=== PATIENT | female | born 1940 | race African-American/Black ===

== ENCOUNTER 2020-12-14 22:08 | Inpatient (IN) | payer OTHER, BC ==
[2020-12-14] MEDS ORDERED: morphine CARPU-JECT 4 MG/1 ML DISP.SYRIN IVPUSH ONE (22:34)
[2020-12-14] MEDS ORDERED: ONDANSETRON 4 MG/2 ML VIAL IVPUSH ONE (22:35)
[2020-12-14] MEDS ORDERED: morphine SULFATE 4 MG/ML VIAL ONE (22:38)
[2020-12-14] MEDS ORDERED: ONDANSETRON 4 MG/2 ML VIAL ONE (22:38)
[2020-12-14 23:03] LABS: BASO % 0.6 % (0-2.0); HEMATOCRIT 45.8 % (32.4-45.2); HEMOGLOBIN 15.3 GM/dL (10.7-15.3); LYMPH % 11.1 % (8-40); MCH 29.3 pg (25.7-33.7); MCHC 33.4 g/dl (32.0-36.0); MEAN CELL VOLUME 87.8 fl (80-96); MONO % 4.6 % (3.8-10.2); NEUT % 81.7 % (42.8-82.8); PLATELET COUNT 368 K/MM3 (134-434); RBC 5.22 M/mm3 (3.60-5.2); RDW 14.4 % (11.6-15.6); WHITE BLOOD COUNT 8.6 K/mm3 (4.0-10.0)
[2020-12-14] MEDS ORDERED: CEFTRIAXONE 1 GM in DEXTROSE 5%-WATER - 100 ML IVPB ONE (23:07)
[2020-12-14] MEDS ORDERED: SODIUM CHLORIDE 1,000 ML IV STA (23:09)
[2020-12-14 23:10] LABS: INR 0.92 (0.83-1.09); PROTHROMBIN TIME (PATIENT) 11.4 SEC (9.7-13.0)
[2020-12-14] MEDS ORDERED: ACETAMINOPHEN 1000 MG/100 ML VIAL (NON FORMULARY) IVPB ONE (23:14)
[2020-12-14] MEDS ORDERED: CEFTRIAXONE 1 GM/50 ML BAG ONE (23:21)
[2020-12-14] MEDS ORDERED: ACETAMINOPHEN INJECTION 100 ML IVPB ONE (23:21)
[2020-12-14 23:24] LABS: CHLORIDE 106 mmol/L (98-107); SODIUM 139 mmol/L (136-145)
[2020-12-14 23:27] LABS: ALBUMIN 3.8 g/dl (3.4-5.0); ANION GAP 7 MMOL/L (8-16); CALCIUM 9.6 mg/dL (8.5-10.1); CO2 26 mmol/L (21-32)
[2020-12-14 23:28] LABS: BLOOD UREA NITROGEN 16.5 mg/dL (7-18); GLUCOSE,RANDOM 119 mg/dL (74-106)
[2020-12-14 23:30] LABS: CREATININE 1.8 mg/dL (0.55-1.3); SGOT/AST 44 U/L (15-37); SGPT/ALT 31 U/L (13-61)
[2020-12-14 23:31] LABS: BILIRUBIN,TOTAL 0.5 mg/dL (0.2-1); TOT PROT 7.8 g/dl (6.4-8.2)
[2020-12-14 23:32] LABS: ALK PHOS 109 U/L (45-117)
[2020-12-14] MEDS ORDERED: SODIUM CHLORIDE 1,000 ML IV SCH (23:45)
[2020-12-15] MEDS ORDERED: MORPHINE SULFATE 2 MG/ML VIAL IVPUSH ONE (00:32)
[2020-12-15] MEDS ORDERED: HYDROmorphone HCl 2 MG/ML VIAL IVPUSH ONE (00:56)
[2020-12-15] MEDS ORDERED: HYDROmorphone HCl 2 MG/ML VIAL ONE ×2 (01:00→14:37)
[2020-12-15] MEDS ORDERED: morphine SULFATE 4 MG/ML VIAL IVPUSH PRN (04:00)
[2020-12-15] MEDS ORDERED: ACETAMINOPHEN 1000 MG/100 ML VIAL (NON FORMULARY) IVPB PRN ×3 (08:16→22:32)
[2020-12-15 08:39] LABS: BASO % 0.2 % (0-2.0); EOS % 0.1 % (0-4.5); HEMATOCRIT 42.2 % (32.4-45.2); HEMOGLOBIN 14.2 GM/dL (10.7-15.3); LYMPH % 4.8 % (8-40); MCH 29.7 pg (25.7-33.7); MCHC 33.5 g/dl (32.0-36.0); MEAN CELL VOLUME 88.6 fl (80-96); MEAN PLT VOLUME 9.3 fl (7.5-11.1); MONO % 5.8 % (3.8-10.2); NEUT % 89.1 % (42.8-82.8); PLATELET COUNT 319 K/MM3 (134-434); RBC 4.77 M/mm3 (3.60-5.2); RDW 14.1 % (11.6-15.6); WHITE BLOOD COUNT 9.2 K/mm3 (4.0-10.0)
[2020-12-15 09:05] LABS: BLOOD UREA NITROGEN 16.3 mg/dL (7-18); CALCIUM 8.9 mg/dL (8.5-10.1)
[2020-12-15 09:10] LABS: CREATININE 1.7 mg/dL (0.55-1.3)
[2020-12-15] MEDS ORDERED: cefTRIAXone SODIUM 1 GM VIAL ONE (09:13)
[2020-12-15] MEDS ORDERED: CEFTRIAXONE 1 GM in DEXTROSE 5%-WATER - 50 ML IVPB SCH (10:00)
[2020-12-15] MEDS ORDERED: MORPHINE SULFATE 2 MG/ML VIAL IVPUSH PRN (12:21)
[2020-12-15] MEDS ORDERED: POTASSIUM CHLORIDE 10 MEQ in SODIUM CHLORIDE 0.45% 1,000 ML IVPB SCH (12:45)
[2020-12-15] MEDS ORDERED: HYDROmorphone HCl 2 MG/ML VIAL IVPB PRN ×3 (13:20→22:32)
[2020-12-15] MEDS: KCL 10 MEQ IVPB 10 MEQ/100 ML INFUS.BAG IVPB SCH ×2 (13:41→15:51)
[2020-12-15] MEDS ORDERED: HYDROmorphone HCl 2 MG/ML VIAL IVPB ONE (14:45)
[2020-12-15] MEDS ORDERED: SODIUM CHLORIDE 0.45%/POT 20 MEQ/1,000 ML INFUS.BAG IV SCH ×2 (15:30→22:32)
[2020-12-15 16:27] LABS: BASO % 0.3 % (0-2.0); EOS % 0.2 % (0-4.5); HEMATOCRIT 43.1 % (32.4-45.2); LYMPH % 6.7 % (8-40); MCH 29.2 pg (25.7-33.7); MCHC 32.5 g/dl (32.0-36.0); MEAN CELL VOLUME 89.9 fl (80-96); MEAN PLT VOLUME 9.1 fl (7.5-11.1); MONO % 5.1 % (3.8-10.2); NEUT % 87.7 % (42.8-82.8); PLATELET COUNT 308 K/MM3 (134-434); RBC 4.79 M/mm3 (3.60-5.2); RDW 14.3 % (11.6-15.6); WHITE BLOOD COUNT 9.8 K/mm3 (4.0-10.0)
[2020-12-15 16:48] LABS: BLOOD UREA NITROGEN 19.5 mg/dL (7-18); CALCIUM 8.5 mg/dL (8.5-10.1)
[2020-12-15 16:49] LABS: ALBUMIN 3.3 g/dl (3.4-5.0)
[2020-12-15 16:52] LABS: CREATININE 2.2 mg/dL (0.55-1.3)
[2020-12-15 16:54] LABS: BILIRUBIN,TOTAL 0.6 mg/dL (0.2-1); TOT PROT 6.6 g/dl (6.4-8.2)
[2020-12-15] MEDS ORDERED: ONDANSETRON 4 MG/2 ML VIAL ONE (17:15)
[2020-12-15] MEDS ORDERED: SEVOFLURANE 250 ML BTL ONE (17:15)
[2020-12-15] MEDS ORDERED: DEXAMETHASONE SOD PHOSPHATE 4 MG/1 ML VIAL ONE (17:15)
[2020-12-15] MEDS ORDERED: ROCURONIUM BROMIDE 50 MG/5 ML SYRINGE ONE (17:15)
[2020-12-15] MEDS ORDERED: PT OWN MED DRAWER 7, Y5N ONE (17:26)
[2020-12-15] MEDS ORDERED: EPHEDRINE SULFATE/0.9% NACL/PF 50 MG/10 ML SYRINGE NR ONE (18:46)
[2020-12-15] MEDS ORDERED: VASOPRESSIN 20 UNITS/ML VIAL IV ONE (18:53)
[2020-12-15] MEDS ORDERED: NEOSTIGMINE METHYLSULFATE 0.5 MG/1 ML - 10 ML MDV ONE (20:28)
[2020-12-15] MEDS ORDERED: LACTATED RINGERS SOLUTION 1,000 ML IV SCH (21:45)
[2020-12-15] MEDS ORDERED: MUPIROCIN 2% TOPICAL OINTMENT FOR DECOLONIZATION NS SCH (22:00)
[2020-12-15] MEDS ORDERED: CHLORHEXIDINE GLUCONATE 4% CLEANSER FOR DECOLONIZATION TP SCH (22:00)
[2020-12-15 22:13] LABS: CALCIUM 8.2 mg/dL (8.5-10.1)
[2020-12-15 22:14] LABS: BLOOD UREA NITROGEN 19.1 mg/dL (7-18)
[2020-12-15 22:17] LABS: CREATININE 2.5 mg/dL (0.55-1.3)
[2020-12-15 22:35] LABS: HEMATOCRIT 42.2 % (32.4-45.2); HEMOGLOBIN 13.5 GM/dL (10.7-15.3); MCH 29.1 pg (25.7-33.7); MCHC 31.9 g/dl (32.0-36.0); MEAN CELL VOLUME 91.2 fl (80-96); MEAN PLT VOLUME 9.3 fl (7.5-11.1); PLATELET COUNT 282 K/MM3 (134-434); RBC 4.63 M/mm3 (3.60-5.2); RDW 14.7 % (11.6-15.6); WHITE BLOOD COUNT 7.5 K/mm3 (4.0-10.0)
[2020-12-16] MEDS ORDERED: ACETAMINOPHEN 1000 MG/100 ML VIAL (NON FORMULARY) IVPB PRN ×2 (02:16→15:56)
[2020-12-16] MEDS ORDERED: SODIUM CHLORIDE 0.45%/POT 20 MEQ/1,000 ML INFUS.BAG IV SCH (02:16)
[2020-12-16] MEDS ORDERED: LACTATED RINGERS SOLUTION 1000 ML INFUS.BAG IV ONE (02:42)
[2020-12-16] MEDS: MUPIROCIN 2% TOPICAL OINTMENT FOR DECOLONIZATION NS SCH ×3 (02:56→23:05)
[2020-12-16] MEDS ORDERED: METOPROLOL TARTRATE 5 MG/5 ML VIAL IVPUSH ONE (03:13)
[2020-12-16] MEDS: HYDROmorphone HCl 2 MG/ML VIAL IVPB PRN ×3 (05:54→15:53)
[2020-12-16 06:30] LABS: HEMATOCRIT 39.2 % (32.4-45.2); MCH 29.5 pg (25.7-33.7); MCHC 33.2 g/dl (32.0-36.0); MEAN PLT VOLUME 8.9 fl (7.5-11.1); PLATELET COUNT 248 K/MM3 (134-434); RDW 14.4 % (11.6-15.6); WHITE BLOOD COUNT 8.8 K/mm3 (4.0-10.0)
[2020-12-16 06:50] LABS: BLOOD UREA NITROGEN 21.9 mg/dL (7-18); CALCIUM 8.3 mg/dL (8.5-10.1)
[2020-12-16 06:53] LABS: CREATININE 2.3 mg/dL (0.55-1.3)
[2020-12-16 06:56] LABS: BILIRUBIN,TOTAL 1.9 mg/dL (0.2-1); TOT PROT 5.3 g/dl (6.4-8.2)
[2020-12-16] MEDS ORDERED: LEVOTHYROXINE NA 125 MCG TABLET (FP) PO SCH ×2 (07:00)
[2020-12-16 07:09] LABS: ALBUMIN 2.6 g/dl (3.4-5.0)
[2020-12-16] MEDS: LEVOTHYROXINE NA 125 MCG TABLET (FP) PO SCH (07:34)
[2020-12-16] MEDS: KCL 10 MEQ IVPB 10 MEQ/100 ML INFUS.BAG IVPB SCH ×3 (08:55→11:14)
[2020-12-16] MEDS ORDERED: SODIUM CHLORIDE 0.9% 500 ML INFUS.BAG IV ONE (09:01)
[2020-12-16] MEDS: LACTATED RINGERS SOLUTION 1,000 ML IV SCH (09:44)
[2020-12-16] MEDS ORDERED: PARoxetine HCL 20 MG TABLET PO SCH ×2 (10:00)
[2020-12-16] MEDS ORDERED: CEFTRIAXONE 1 GM in DEXTROSE 5%-WATER - 50 ML IVPB SCH (10:00)
[2020-12-16] MEDS ORDERED: MUPIROCIN 2% TOPICAL OINTMENT FOR DECOLONIZATION NS SCH (10:00)
[2020-12-16] MEDS ORDERED: DEXTROSE 5%-WATER - 50 ML IVPB ONE (10:17)
[2020-12-16] MEDS ORDERED: cefTRIAXone SODIUM 1 GM VIAL ONE (10:17)
[2020-12-16] MEDS: PARoxetine HCL 20 MG TABLET PO SCH (10:24)
[2020-12-16] MEDS: CEFTRIAXONE 1 GM in DEXTROSE 5%-WATER - 50 ML IVPB SCH (10:25)
[2020-12-16] MEDS ORDERED: DEXTROSE 5%-LACTATED RINGERS 1,000 ML IV SCH (14:00)
[2020-12-16] MEDS ORDERED: PT OWN MED DRAWER 7, Y5N ONE (18:17)
[2020-12-16] MEDS ORDERED: CHLORHEXIDINE GLUCONATE 4% CLEANSER FOR DECOLONIZATION TP SCH (22:00)
[2020-12-16] MEDS: CHLORHEXIDINE GLUCONATE 4% CLEANSER FOR DECOLONIZATION TP SCH (23:05)
[2020-12-17] MEDS: HYDROmorphone HCl 2 MG/ML VIAL IVPB PRN ×2 (02:49→10:42)
[2020-12-17] MEDS: LACTATED RINGERS SOLUTION 1,000 ML IV SCH ×2 (06:35→12:15)
[2020-12-17] MEDS: LEVOTHYROXINE NA 125 MCG TABLET (FP) PO SCH (07:01)
[2020-12-17 07:07] LABS: ALBUMIN 2.5 g/dl (3.4-5.0); BLOOD UREA NITROGEN 21.1 mg/dL (7-18); CALCIUM 8.5 mg/dL (8.5-10.1)
[2020-12-17 07:11] LABS: BILIRUBIN,TOTAL 0.6 mg/dL (0.2-1); CREATININE 1.8 mg/dL (0.55-1.3); HEMATOCRIT 36.4 % (32.4-45.2); HEMOGLOBIN 12.3 GM/dL (10.7-15.3); MCH 29.9 pg (25.7-33.7); MCHC 33.9 g/dl (32.0-36.0); MEAN CELL VOLUME 88.2 fl (80-96); MEAN PLT VOLUME 9.2 fl (7.5-11.1); PLATELET COUNT 229 K/MM3 (134-434); RBC 4.12 M/mm3 (3.60-5.2); RDW 14.8 % (11.6-15.6); TOT PROT 5.4 g/dl (6.4-8.2); WHITE BLOOD COUNT 6.9 K/mm3 (4.0-10.0)
[2020-12-17] MEDS: MUPIROCIN 2% TOPICAL OINTMENT FOR DECOLONIZATION NS SCH ×2 (09:50→22:33)
[2020-12-17] MEDS ORDERED: cefTRIAXone SODIUM 1 GM VIAL ONE (10:02)
[2020-12-17] MEDS ORDERED: DEXTROSE 5%-WATER - 50 ML IVPB ONE (10:02)
[2020-12-17] MEDS: CEFTRIAXONE 1 GM in DEXTROSE 5%-WATER - 50 ML IVPB SCH (10:08)
[2020-12-17] MEDS: PARoxetine HCL 20 MG TABLET PO SCH (10:12)
[2020-12-17] MEDS ORDERED: PT OWN MED DRAWER 7, Y5N ONE ×2 (10:30→12:12)
[2020-12-17] MEDS ORDERED: ONDANSETRON 4 MG/2 ML VIAL IVPUSH PRN (11:49)
[2020-12-17] MEDS ORDERED: ONDANSETRON 4 MG/2 ML VIAL IVPB STA (12:27)
[2020-12-17] MEDS ORDERED: PANTOPRAZOLE SODIUM 40 MG in SODIUM CHLORIDE 100 ML IVPB SCH (12:30)
[2020-12-17] MEDS: PANTOPRAZOLE SODIUM 40 MG VIAL IVPB SCH (12:52)
[2020-12-17] MEDS: METOCLOPRAMIDE HCL INJECTION 10 MG/2 ML VIAL IVPB SCH ×2 (13:12→18:31)
[2020-12-17] MEDS: BENZOCAINE/MENTH/CETYLPYRD CL 1 EACH LOZENGE MM PRN (13:56)
[2020-12-17] MEDS ORDERED: ACETAMINOPHEN 1000 MG/100 ML VIAL (NON FORMULARY) IVPB PRN (16:21)
[2020-12-17] MEDS: CHLORHEXIDINE GLUCONATE 4% CLEANSER FOR DECOLONIZATION TP SCH (22:33)
[2020-12-17] MEDS ORDERED: ONDANSETRON 4 MG/2 ML VIAL ONE (22:34)
[2020-12-18] MEDS: METOCLOPRAMIDE HCL INJECTION 10 MG/2 ML VIAL IVPB SCH ×3 (02:58→17:29)
[2020-12-18 06:08] LABS: BASO % 0.2 % (0-2.0); EOS % 0.6 % (0-4.5); HEMATOCRIT 39.8 % (32.4-45.2); HEMOGLOBIN 13.3 GM/dL (10.7-15.3); LYMPH % 4.9 % (8-40); MCH 29.4 pg (25.7-33.7); MCHC 33.4 g/dl (32.0-36.0); MEAN CELL VOLUME 87.9 fl (80-96); MEAN PLT VOLUME 9.2 fl (7.5-11.1); MONO % 5.6 % (3.8-10.2); NEUT % 88.7 % (42.8-82.8); PLATELET COUNT 279 K/MM3 (134-434); RBC 4.53 M/mm3 (3.60-5.2); RDW 14.3 % (11.6-15.6); WHITE BLOOD COUNT 11.2 K/mm3 (4.0-10.0)
[2020-12-18 06:24] LABS: ALBUMIN 2.7 g/dl (3.4-5.0); BLOOD UREA NITROGEN 19.4 mg/dL (7-18); CALCIUM 8.9 mg/dL (8.5-10.1); MAGNESIUM 2.2 mg/dL (1.8-2.4)
[2020-12-18 06:27] LABS: CREATININE 1.4 mg/dL (0.55-1.3); PHOSPHOROUS 2.5 mg/dL (2.5-4.9)
[2020-12-18 06:29] LABS: BILIRUBIN,TOTAL 0.9 mg/dL (0.2-1); TOT PROT 6.1 g/dl (6.4-8.2)
[2020-12-18] MEDS: LEVOTHYROXINE NA 125 MCG TABLET (FP) PO SCH (08:00)
[2020-12-18] MEDS: BENZOCAINE/MENTH/CETYLPYRD CL 1 EACH LOZENGE MM PRN (08:03)
[2020-12-18] MEDS ORDERED: DEXTROSE 5%-WATER - 50 ML IVPB ONE (09:48)
[2020-12-18] MEDS ORDERED: cefTRIAXone SODIUM 1 GM VIAL ONE (09:48)
[2020-12-18] MEDS: PANTOPRAZOLE SODIUM 40 MG VIAL IVPB SCH (09:54)
[2020-12-18] MEDS: MUPIROCIN 2% TOPICAL OINTMENT FOR DECOLONIZATION NS SCH ×2 (09:55→21:37)
[2020-12-18] MEDS: CEFTRIAXONE 1 GM in DEXTROSE 5%-WATER - 50 ML IVPB SCH (09:56)
[2020-12-18] MEDS: LACTATED RINGERS SOLUTION 1,000 ML IV SCH (17:29)
[2020-12-18] MEDS ORDERED: ACETAMINOPHEN 1000 MG/100 ML VIAL (NON FORMULARY) IVPB PRN (18:59)
[2020-12-18] MEDS: CHLORHEXIDINE GLUCONATE 4% CLEANSER FOR DECOLONIZATION TP SCH (21:37)
[2020-12-19] MEDS: METOCLOPRAMIDE HCL INJECTION 10 MG/2 ML VIAL IVPB SCH ×3 (02:01→17:22)
[2020-12-19] MEDS: LEVOTHYROXINE NA 125 MCG TABLET (FP) PO SCH (06:34)
[2020-12-19 06:42] LABS: HEMATOCRIT 35.8 % (32.4-45.2); HEMOGLOBIN 12.1 GM/dL (10.7-15.3); MCH 29.7 pg (25.7-33.7); MCHC 33.8 g/dl (32.0-36.0); MEAN CELL VOLUME 87.7 fl (80-96); PLATELET COUNT 260 K/MM3 (134-434); RBC 4.08 M/mm3 (3.60-5.2); WHITE BLOOD COUNT 10.4 K/mm3 (4.0-10.0)
[2020-12-19 06:55] LABS: CHLORIDE 110 mmol/L (98-107); SODIUM 145 mmol/L (136-145)
[2020-12-19 06:58] LABS: BLOOD UREA NITROGEN 16.7 mg/dL (7-18); CALCIUM 8.4 mg/dL (8.5-10.1); CO2 24 mmol/L (21-32); GLUCOSE,RANDOM 82 mg/dL (74-106); MAGNESIUM 1.8 mg/dL (1.8-2.4)
[2020-12-19 07:02] LABS: CREATININE 1.2 mg/dL (0.55-1.3); PHOSPHOROUS 2.2 mg/dL (2.5-4.9)
[2020-12-19 08:01] LABS: ANION GAP 11 MMOL/L (8-16)
[2020-12-19] MEDS ORDERED: KCL 10 MEQ IVPB 10 MEQ/100 ML INFUS.BAG IVPB SCH (08:15)
[2020-12-19] MEDS: KCL 10 MEQ IVPB 10 MEQ/100 ML INFUS.BAG IVPB SCH ×3 (09:00→12:35)
[2020-12-19] MEDS ORDERED: cefTRIAXone SODIUM 1 GM VIAL ONE (09:02)
[2020-12-19] MEDS ORDERED: DEXTROSE 5%-WATER - 50 ML IVPB ONE (09:02)
[2020-12-19] MEDS: PANTOPRAZOLE SODIUM 40 MG VIAL IVPB SCH (09:19)
[2020-12-19] MEDS: MUPIROCIN 2% TOPICAL OINTMENT FOR DECOLONIZATION NS SCH (09:24)
[2020-12-19] MEDS: LACTATED RINGERS SOLUTION 1,000 ML IV SCH (12:33)
[2020-12-19] MEDS ORDERED: PT OWN MED DRAWER 7, Y5N ONE (17:16)
[2020-12-19] MEDS: BENZOCAINE/MENTH/CETYLPYRD CL 1 EACH LOZENGE MM PRN (17:19)
[2020-12-19] MEDS ORDERED: BENZOCAINE/MENTH/CETYLPYRD CL 1 EACH LOZENGE MM PRN (20:12)
[2020-12-19] MEDS ORDERED: ACETAMINOPHEN 1000 MG/100 ML VIAL (NON FORMULARY) IVPB PRN (22:38)
[2020-12-20] MEDS: METOCLOPRAMIDE HCL INJECTION 10 MG/2 ML VIAL IVPB SCH ×3 (02:03→17:01)
[2020-12-20] MEDS ORDERED: METOPROLOL TARTRATE 5 MG/5 ML VIAL IVPUSH ONE (05:06)
[2020-12-20] MEDS ORDERED: METOPROLOL TARTRATE 5 MG/5 ML VIAL ONE (05:11)
[2020-12-20 05:37] LABS: HEMATOCRIT 38.9 % (32.4-45.2); HEMOGLOBIN 13.3 GM/dL (10.7-15.3); MCH 29.6 pg (25.7-33.7); MCHC 34.2 g/dl (32.0-36.0); MEAN CELL VOLUME 86.4 fl (80-96); MEAN PLT VOLUME 8.6 fl (7.5-11.1); PLATELET COUNT 287 K/MM3 (134-434); RBC 4.51 M/mm3 (3.60-5.2); RDW 13.7 % (11.6-15.6); WHITE BLOOD COUNT 9.3 K/mm3 (4.0-10.0)
[2020-12-20 05:57] LABS: CHLORIDE 104 mmol/L (98-107); SODIUM 141 mmol/L (136-145)
[2020-12-20 05:59] LABS: ALBUMIN 2.9 g/dl (3.4-5.0); BLOOD UREA NITROGEN 13.7 mg/dL (7-18); CALCIUM 8.7 mg/dL (8.5-10.1); CO2 27 mmol/L (21-32); GLUCOSE,RANDOM 82 mg/dL (74-106)
[2020-12-20 06:02] LABS: SGOT/AST 17 U/L (15-37); SGPT/ALT 13 U/L (13-61)
[2020-12-20 06:03] LABS: CREATININE 1.2 mg/dL (0.55-1.3)
[2020-12-20 06:04] LABS: BILIRUBIN,TOTAL 0.8 mg/dL (0.2-1); TOT PROT 6.1 g/dl (6.4-8.2)
[2020-12-20 06:05] LABS: ALK PHOS 94 U/L (45-117)
[2020-12-20 06:07] LABS: N-TERMINAL BNP 1877.8 pg/ml (5-450)
[2020-12-20] MEDS: LEVOTHYROXINE NA 125 MCG TABLET (FP) PO SCH (06:32)
[2020-12-20 06:37] LABS: ANION GAP 11 MMOL/L (8-16)
[2020-12-20] MEDS: KCL 10 MEQ IVPB 10 MEQ/100 ML INFUS.BAG IVPB SCH ×2 (07:54→09:15)
[2020-12-20] MEDS: PANTOPRAZOLE SODIUM 40 MG VIAL IVPB SCH (09:23)
[2020-12-20] MEDS: POTASSIUM CHLORIDE ORAL LIQUID 20 MEQ/15 ML PO SCH ×2 (09:24→21:51)
[2020-12-20 10:48] LABS: MAGNESIUM 1.6 mg/dL (1.8-2.4)
[2020-12-20] MEDS: ACETAMINOPHEN 325 MG TABLET (FP) PO PRN ×2 (13:47→21:52)
[2020-12-20 16:53] LABS: CHLORIDE 104 mmol/L (98-107); SODIUM 140 mmol/L (136-145)
[2020-12-20 16:54] LABS: CALCIUM 8.2 mg/dL (8.5-10.1)
[2020-12-20 16:55] LABS: CO2 28 mmol/L (21-32); GLUCOSE,RANDOM 115 mg/dL (74-106)
[2020-12-20 16:58] LABS: CREATININE 1.2 mg/dL (0.55-1.3)
[2020-12-20 17:07] LABS: ANION GAP 7 MMOL/L (8-16)
[2020-12-21] MEDS: METOCLOPRAMIDE HCL INJECTION 10 MG/2 ML VIAL IVPB SCH (03:00)
[2020-12-21] MEDS: LEVOTHYROXINE NA 125 MCG TABLET (FP) PO SCH (06:29)
[2020-12-21] MEDS ORDERED: METOCLOPRAMIDE HCL INJECTION 10 MG/2 ML VIAL IVPB PRN (08:31)
[2020-12-21] MEDS: FAMOTIDINE 20 MG TABLET PO SCH (09:06)
[2020-12-21 09:12] LABS: HEMATOCRIT 41.6 % (32.4-45.2); HEMOGLOBIN 14.2 GM/dL (10.7-15.3); MCH 29.6 pg (25.7-33.7); MCHC 34.1 g/dl (32.0-36.0); MEAN CELL VOLUME 86.9 fl (80-96); MEAN PLT VOLUME 8.8 fl (7.5-11.1); PLATELET COUNT 301 K/MM3 (134-434); RBC 4.79 M/mm3 (3.60-5.2); RDW 14.2 % (11.6-15.6); WHITE BLOOD COUNT 9.6 K/mm3 (4.0-10.0)
[2020-12-21 09:25] LABS: CHLORIDE 105 mmol/L (98-107); SODIUM 141 mmol/L (136-145)
[2020-12-21 09:26] LABS: CALCIUM 9.1 mg/dL (8.5-10.1)
[2020-12-21 09:27] LABS: BLOOD UREA NITROGEN 11.4 mg/dL (7-18); CO2 25 mmol/L (21-32); GLUCOSE,RANDOM 124 mg/dL (74-106); MAGNESIUM 1.4 mg/dL (1.8-2.4)
[2020-12-21 09:30] LABS: CREATININE 1.3 mg/dL (0.55-1.3); SGOT/AST 21 U/L (15-37); SGPT/ALT 16 U/L (13-61)
[2020-12-21] MEDS ORDERED: MAGNESIUM SULF 50% (8.12 MEQ/2 ML-1 GM VIAL) IVPB ONE (09:30)
[2020-12-21 09:32] LABS: BILIRUBIN,TOTAL 0.7 mg/dL (0.2-1); TOT PROT 6.4 g/dl (6.4-8.2)
[2020-12-21 09:33] LABS: ALK PHOS 94 U/L (45-117); ANION GAP 11 MMOL/L (8-16)
[2020-12-21] MEDS: POTASSIUM CHLORIDE ORAL LIQUID 20 MEQ/15 ML PO SCH ×2 (11:23→21:49)
[2020-12-21] MEDS: KCL 10 MEQ IVPB 10 MEQ/100 ML INFUS.BAG IVPB SCH ×3 (11:28→17:29)
[2020-12-21] MEDS: ACETAMINOPHEN 325 MG TABLET (FP) PO PRN ×2 (11:33→21:51)
[2020-12-22] MEDS: LEVOTHYROXINE NA 125 MCG TABLET (FP) PO SCH (06:17)
[2020-12-22] MEDS ORDERED: MINERAL OIL ENEMA 133 ML ENEMA RC ONE (08:03)
[2020-12-22] MEDS ORDERED: ACETAMINOPHEN 1000 MG/100 ML VIAL (NON FORMULARY) IVPB PRN ×2 (08:03→17:35)
[2020-12-22] MEDS ORDERED: SIMETHICONE 40 MG/0.6 ML BOTTLE PO PRN (08:04)
[2020-12-22 08:40] LABS: ALBUMIN 2.8 g/dl (3.4-5.0)
[2020-12-22 08:41] LABS: BLOOD UREA NITROGEN 8.2 mg/dL (7-18); CALCIUM 8.3 mg/dL (8.5-10.1)
[2020-12-22 08:44] LABS: CREATININE 1.3 mg/dL (0.55-1.3)
[2020-12-22 08:45] LABS: BILIRUBIN,TOTAL 0.6 mg/dL (0.2-1); TOT PROT 5.9 g/dl (6.4-8.2)
[2020-12-22] MEDS: POTASSIUM CHLORIDE ORAL LIQUID 20 MEQ/15 ML PO SCH ×2 (09:24→21:38)
[2020-12-22] MEDS: FAMOTIDINE 20 MG TABLET PO SCH (09:24)
[2020-12-22 14:01] VITALS: BMI 31.1
[2020-12-22] MEDS ORDERED: cefTRIAXone SODIUM 1 GM VIAL ONE (14:07)
[2020-12-22] MEDS ORDERED: DEXTROSE 5%-WATER - 50 ML IVPB ONE (14:07)
[2020-12-22] MEDS: CEFTRIAXONE 1 GM in DEXTROSE 5%-WATER - 50 ML IVPB SCH (14:19)
[2020-12-22] MEDS: PANTOPRAZOLE 40 MG TABLET PO SCH (14:20)
[2020-12-22] MEDS: SODIUM PHOSPHATE/NA BIPHOS 133 ML ENEMA RC SCH ×3 (14:24→21:29)
[2020-12-22] MEDS: RIFAXIMIN 550 MG TABLET (UD) PO SCH ×2 (14:41→21:38)
[2020-12-22] MEDS: SIMETHICONE 40 MG/0.6 ML BOTTLE PO SCH ×3 (14:42→21:38)
[2020-12-22] MEDS ORDERED: PT OWN MED DRAWER 7, Y5N ONE (14:57)
[2020-12-22] MEDS: METOCLOPRAMIDE HCL 10 MG TABLET (FP) PO SCH (17:00)
[2020-12-22] MEDS ORDERED: oxyCODONE HCL 5 MG TABLET PO PRN (17:30)
[2020-12-22] MEDS ORDERED: ACETAMINOPHEN 325 MG TABLET (FP) PO PRN (17:30)
[2020-12-22] MEDS: HYDROmorphone HCl 2 MG/ML VIAL IVPB PRN (18:34)
[2020-12-22] MEDS: SODIUM CHLORIDE 0.45%/POT 20 MEQ/1,000 ML INFUS.BAG IV SCH (18:39)
[2020-12-22] MEDS ORDERED: POLYETHYLENE GLYCOL 3350 119 GM BTL PO SCH (22:00)
[2020-12-23] MEDS: SODIUM PHOSPHATE/NA BIPHOS 133 ML ENEMA RC SCH (01:51)
[2020-12-23] MEDS: RIFAXIMIN 550 MG TABLET (UD) PO SCH ×3 (05:55→21:15)
[2020-12-23] MEDS: METOCLOPRAMIDE HCL 10 MG TABLET (FP) PO SCH (06:04)
[2020-12-23] MEDS: LEVOTHYROXINE NA 125 MCG TABLET (FP) PO SCH (06:04)
[2020-12-23] MEDS: HYDROmorphone HCl 2 MG/ML VIAL IVPB PRN ×3 (06:52→21:00)
[2020-12-23 08:08] LABS: BASO % 0.6 % (0-2.0); EOS % 4.8 % (0-4.5); HEMATOCRIT 35.2 % (32.4-45.2); LYMPH % 11.7 % (8-40); MCH 29.4 pg (25.7-33.7); MEAN CELL VOLUME 86.5 fl (80-96); MEAN PLT VOLUME 8.6 fl (7.5-11.1); MONO % 13.4 % (3.8-10.2); NEUT % 69.5 % (42.8-82.8); PLATELET COUNT 336 K/MM3 (134-434); RBC 4.07 M/mm3 (3.60-5.2); RDW 13.8 % (11.6-15.6); WHITE BLOOD COUNT 11.4 K/mm3 (4.0-10.0)
[2020-12-23 08:28] LABS: CALCIUM 7.9 mg/dL (8.5-10.1)
[2020-12-23 08:29] LABS: ALBUMIN 2.6 g/dl (3.4-5.0); BLOOD UREA NITROGEN 6.9 mg/dL (7-18); MAGNESIUM 1.5 mg/dL (1.8-2.4)
[2020-12-23 08:32] LABS: CREATININE 1.2 mg/dL (0.55-1.3)
[2020-12-23 08:33] LABS: BILIRUBIN,TOTAL 0.5 mg/dL (0.2-1)
[2020-12-23 08:34] LABS: TOT PROT 5.6 g/dl (6.4-8.2)
[2020-12-23] MEDS ORDERED: PT OWN MED DRAWER 7, Y5N ONE ×4 (09:59→22:51)
[2020-12-23] MEDS ORDERED: cefTRIAXone SODIUM 1 GM VIAL ONE (10:00)
[2020-12-23] MEDS ORDERED: DEXTROSE 5%-WATER - 50 ML IVPB ONE (10:01)
[2020-12-23] MEDS: CEFTRIAXONE 1 GM in DEXTROSE 5%-WATER - 50 ML IVPB SCH (10:07)
[2020-12-23] MEDS: POTASSIUM CHLORIDE ORAL LIQUID 20 MEQ/15 ML PO SCH ×2 (10:08→21:16)
[2020-12-23] MEDS: PANTOPRAZOLE 40 MG TABLET PO SCH (10:08)
[2020-12-23] MEDS: SIMETHICONE 40 MG/0.6 ML BOTTLE PO SCH ×4 (10:08→21:39)
[2020-12-23] MEDS: ENOXAPARIN NA (PORCINE) 40 MG/0.4 ML DISP.SYRIN SQ SCH (10:08)
[2020-12-23 12:03] LABS: ANISOCYTOSIS 1+; MACROCYTOSIS 0; PLATELET ESTIMATE NORMAL
[2020-12-23] MEDS: SODIUM CHLORIDE 0.45%/POT 20 MEQ/1,000 ML INFUS.BAG IV SCH (17:27)
[2020-12-23] MEDS ORDERED: KETOROLAC TROMETHAMINE 60 MG/2 ML VIAL IVPUSH ONE (17:47)
[2020-12-23] MEDS ORDERED: KETOROLAC TROMETHAMINE 30 MG/1 ML VIAL IVPUSH PRN (17:49)
[2020-12-23] MEDS ORDERED: KETOROLAC TROMETHAMINE 30 MG/1 ML VIAL IVPUSH ONE (18:00)
[2020-12-24] MEDS: HYDROmorphone HCl 2 MG/ML VIAL IVPB PRN ×3 (05:00→21:23)
[2020-12-24] MEDS: RIFAXIMIN 550 MG TABLET (UD) PO SCH ×3 (05:06→21:26)
[2020-12-24] MEDS: LEVOTHYROXINE NA 125 MCG TABLET (FP) PO SCH (06:09)
[2020-12-24] MEDS ORDERED: PT OWN MED DRAWER 7, Y5N ONE ×2 (09:44→16:20)
[2020-12-24] MEDS ORDERED: DEXTROSE 5%-WATER - 50 ML IVPB ONE (09:45)
[2020-12-24] MEDS ORDERED: cefTRIAXone SODIUM 1 GM VIAL ONE (09:45)
[2020-12-24] MEDS: CEFTRIAXONE 1 GM in DEXTROSE 5%-WATER - 50 ML IVPB SCH (09:51)
[2020-12-24] MEDS: PANTOPRAZOLE 40 MG TABLET PO SCH (09:52)
[2020-12-24] MEDS: SIMETHICONE 40 MG/0.6 ML BOTTLE PO SCH ×5 (09:52→21:26)
[2020-12-24] MEDS: ENOXAPARIN NA (PORCINE) 40 MG/0.4 ML DISP.SYRIN SQ SCH (09:52)
[2020-12-24] MEDS: POTASSIUM CHLORIDE ORAL LIQUID 20 MEQ/15 ML PO SCH (09:54)
[2020-12-24 10:05] LABS: BASO % 0.9 % (0-2.0); EOS % 3.6 % (0-4.5); HEMATOCRIT 37.8 % (32.4-45.2); HEMOGLOBIN 12.5 GM/dL (10.7-15.3); LYMPH % 11.6 % (8-40); MCH 29.7 pg (25.7-33.7); MCHC 33.2 g/dl (32.0-36.0); MEAN CELL VOLUME 89.7 fl (80-96); MEAN PLT VOLUME 9.5 fl (7.5-11.1); MONO % 12.3 % (3.8-10.2); NEUT % 71.6 % (42.8-82.8); PLATELET COUNT 326 K/MM3 (134-434); RBC 4.21 M/mm3 (3.60-5.2); RDW 14.3 % (11.6-15.6); WHITE BLOOD COUNT 10.5 K/mm3 (4.0-10.0)
[2020-12-24 10:28] LABS: BLOOD UREA NITROGEN 6.7 mg/dL (7-18); CALCIUM 8.7 mg/dL (8.5-10.1)
[2020-12-24 10:31] LABS: CREATININE 1.2 mg/dL (0.55-1.3)
[2020-12-24 10:33] LABS: BILIRUBIN,TOTAL 0.8 mg/dL (0.2-1); TOT PROT 6.6 g/dl (6.4-8.2)
[2020-12-24] MEDS: SODIUM CHLORIDE 0.45%/POT 20 MEQ/1,000 ML INFUS.BAG IV SCH (17:11)
[2020-12-24] MEDS ORDERED: KETOROLAC TROMETHAMINE 30 MG/1 ML VIAL IVPUSH PRN (17:12)
[2020-12-24] MEDS ORDERED: SODIUM CHLORIDE 0.45%/POT 20 MEQ/1,000 ML INFUS.BAG IV SCH (17:12)
[2020-12-25] MEDS: RIFAXIMIN 550 MG TABLET (UD) PO SCH ×3 (05:24→21:10)
[2020-12-25] MEDS: LEVOTHYROXINE NA 125 MCG TABLET (FP) PO SCH (06:07)
[2020-12-25] MEDS ORDERED: cefTRIAXone SODIUM 1 GM VIAL ONE (08:52)
[2020-12-25] MEDS ORDERED: DEXTROSE 5%-WATER - 50 ML IVPB ONE (08:52)
[2020-12-25] MEDS ORDERED: PT OWN MED DRAWER 7, Y5N ONE ×3 (08:52→17:08)
[2020-12-25] MEDS: SIMETHICONE 40 MG/0.6 ML BOTTLE PO SCH ×4 (09:03→21:10)
[2020-12-25] MEDS: CEFTRIAXONE 1 GM in DEXTROSE 5%-WATER - 50 ML IVPB SCH (09:03)
[2020-12-25] MEDS: PANTOPRAZOLE 40 MG TABLET PO SCH (09:03)
[2020-12-25] MEDS: ENOXAPARIN NA (PORCINE) 40 MG/0.4 ML DISP.SYRIN SQ SCH (09:03)
[2020-12-25] MEDS: ACETAMINOPHEN 325 MG TABLET (FP) PO PRN (20:34)
[2020-12-26] MEDS: RIFAXIMIN 550 MG TABLET (UD) PO SCH ×2 (05:50→13:39)
[2020-12-26] MEDS: LEVOTHYROXINE NA 125 MCG TABLET (FP) PO SCH (06:05)
[2020-12-26 08:55] LABS: BASO % 1.2 % (0-2.0); EOS % 4.4 % (0-4.5); HEMATOCRIT 35.9 % (32.4-45.2); HEMOGLOBIN 12.1 GM/dL (10.7-15.3); LYMPH % 10.6 % (8-40); MCH 29.7 pg (25.7-33.7); MCHC 33.6 g/dl (32.0-36.0); MEAN CELL VOLUME 88.2 fl (80-96); MEAN PLT VOLUME 8.8 fl (7.5-11.1); MONO % 12.6 % (3.8-10.2); NEUT % 71.2 % (42.8-82.8); PLATELET COUNT 488 K/MM3 (134-434); RBC 4.07 M/mm3 (3.60-5.2); RDW 13.9 % (11.6-15.6); WHITE BLOOD COUNT 8.4 K/mm3 (4.0-10.0)
[2020-12-26 09:29] LABS: ALBUMIN 2.9 g/dl (3.4-5.0); BLOOD UREA NITROGEN 3.9 mg/dL (7-18); CALCIUM 8.7 mg/dL (8.5-10.1)
[2020-12-26 09:32] LABS: CREATININE 1.3 mg/dL (0.55-1.3)
[2020-12-26 09:34] LABS: BILIRUBIN,TOTAL 0.5 mg/dL (0.2-1); TOT PROT 6.2 g/dl (6.4-8.2)
[2020-12-26] MEDS ORDERED: PT OWN MED DRAWER 7, Y5N ONE ×5 (10:20→21:34)
[2020-12-26 10:21] LABS: ANISOCYTOSIS 0; MACROCYTOSIS 0; PLATELET ESTIMATE INCREASED
[2020-12-26] MEDS: LOSARTAN POTASSIUM 50 MG TABLET PO SCH (10:22)
[2020-12-26] MEDS: SIMETHICONE 40 MG/0.6 ML BOTTLE PO SCH ×4 (10:22→21:48)
[2020-12-26] MEDS: PANTOPRAZOLE 40 MG TABLET PO SCH (10:23)
[2020-12-26] MEDS: ENOXAPARIN NA (PORCINE) 40 MG/0.4 ML DISP.SYRIN SQ SCH (10:23)
[2020-12-26] MEDS ORDERED: DEXTROSE 5%-WATER - 50 ML IVPB ONE (10:25)
[2020-12-26] MEDS ORDERED: cefTRIAXone SODIUM 1 GM VIAL ONE (10:25)
[2020-12-26] MEDS: CEFTRIAXONE 1 GM in DEXTROSE 5%-WATER - 50 ML IVPB SCH (11:47)
[2020-12-26] MEDS: HYDROmorphone HCl 2 MG/ML VIAL IVPB PRN ×2 (16:10→23:21)
[2020-12-26] MEDS: ACETAMINOPHEN 325 MG TABLET (FP) PO PRN (21:48)
[2020-12-27] MEDS ORDERED: metroNIDAZOLE 250 MG TABLET PO SCH (06:00)
[2020-12-27] MEDS ORDERED: CIPROFLOXACIN 500 MG TABLET (RESTRICTED TO ID) PO SCH (06:00)
[2020-12-27] MEDS: LEVOTHYROXINE NA 125 MCG TABLET (FP) PO SCH (06:21)
[2020-12-27 08:01] LABS: HEMATOCRIT 34.2 % (32.4-45.2); HEMOGLOBIN 11.5 GM/dL (10.7-15.3); MCH 29.7 pg (25.7-33.7); MCHC 33.7 g/dl (32.0-36.0); MEAN CELL VOLUME 88.2 fl (80-96); MEAN PLT VOLUME 8.8 fl (7.5-11.1); PLATELET COUNT 555 K/MM3 (134-434); RBC 3.88 M/mm3 (3.60-5.2); RDW 14.1 % (11.6-15.6)
[2020-12-27 08:05] LABS: ALBUMIN 2.9 g/dl (3.4-5.0); BLOOD UREA NITROGEN 5.6 mg/dL (7-18); CALCIUM 8.2 mg/dL (8.5-10.1)
[2020-12-27 08:08] LABS: CREATININE 1.4 mg/dL (0.55-1.3)
[2020-12-27 08:09] LABS: BILIRUBIN,TOTAL 0.8 mg/dL (0.2-1); TOT PROT 6.1 g/dl (6.4-8.2)
[2020-12-27] MEDS ORDERED: PT OWN MED DRAWER 7, Y5N ONE (09:18)
[2020-12-27] MEDS: LOSARTAN POTASSIUM 50 MG TABLET PO SCH (09:21)
[2020-12-27] MEDS: SIMETHICONE 40 MG/0.6 ML BOTTLE PO SCH (09:21)
[2020-12-27] MEDS: ENOXAPARIN NA (PORCINE) 40 MG/0.4 ML DISP.SYRIN SQ SCH (09:22)
[2020-12-27 10:40] VITALS: BP 155/86; PULSE 85; TEMP 98.8
== END 2020-12-27 13:30 | disposition home health service (06) | DRG 908 ==
LOC: JER 22:08 → JERBED 23:48 → J8W 12-15 02:01 → JICU 12-16 02:15 → J4W 12-19 20:18 → UNDODISIN 12-24 13:23 → J8W 12-24 16:54
PROVIDERS: ADMIT Internal Medicine; ATTEND Internal Medicine
PROC: 0DB84ZZ Excision of Small Intestine, Percutaneous Endoscopic Approach (ICD-10-PCS; 2020-12-15)
PROC: 0DQ84ZZ Repair Small Intestine, Percutaneous Endoscopic Approach (ICD-10-PCS; 2020-12-15)
PROC: 0DNW4ZZ Release Peritoneum, Percutaneous Endoscopic Approach (ICD-10-PCS; principal; 2020-12-15 18:00)
DX: K91.71 Accidental puncture and laceration of a digestive system organ or structure during a digestive system procedure (principal); N17.9 Acute kidney failure, unspecified; K56.7 Ileus, unspecified; I48.92 Unspecified atrial flutter; R00.0 Tachycardia, unspecified; Y83.9 Surgical procedure, unspecified as the cause of abnormal reaction of the patient, or of later complication, without mention of misadventure at the time of the procedure; K66.0 Peritoneal adhesions (postprocedural) (postinfection); I10 Essential (primary) hypertension; E03.9 Hypothyroidism, unspecified; I48.91 Unspecified atrial fibrillation; E87.6 Hypokalemia; R10.9 Unspecified abdominal pain
CPT/HCPCS: 36415; 71045-TC-FY; 74018-TC-FY; 74019-TC-FY; 74176-TC; 80048; 80053; 80061; 82550; 82553; 83036; 83721; 83735; 83880; 84100; 84439; 84443; 84481; 84484; 85025; 85027; 85610; 86850; 86900; 86901; 87070; 87075; 87186; 87205; 88307-TC; 93005; 93010; 93306-TC; 94660; 94760; 94761; 97116-GP; 97161-GP; 99285-25; C9803; J0131; J3480; U0003; U0005

== ENCOUNTER 2021-09-15 04:06 | Day surgery (SDC) | payer OTHER, BC ==
[2021-09-13 13:50] VITALS: BMI 29.8
[~2021-09-15 04:06] MED LIST: IOHEXOL 180 MG/1 ML ML IJ ONE
[2021-09-15 06:43] VITALS: TEMP 97.1
[2021-09-15] MEDS ORDERED: LIDOCAINE HCL/PF 1% SDV 5ML VIAL ONE (07:18)
[2021-09-15] MEDS ORDERED: TRIAMCINOLONE ACET 40MG/1ML VIAL ONE (07:18)
[2021-09-15] MEDS ORDERED: BUPIVACAINE HCL/PF 0.25% (2.5MG/ML) 10 ML VIAL ONE (07:18)
[2021-09-15] MEDS ORDERED: IOHEXOL 180 MG/1 ML ML IJ ONE (08:41)
[2021-09-15] MEDS ORDERED: BUPIVACAINE HCL/PF 0.5% (5MG/ML) 10 ML VIAL IJ ONE (08:43)
[2021-09-15] MEDS ORDERED: TRIAMCINOLONE ACETONIDE 40 MG/ML 10 ML VIAL IJ ONE (08:43)
[2021-09-15] MEDS ORDERED: LIDOCAINE 1% P/F 10 MG/ML VIAL INF ONE (08:43)
[2021-09-15 09:00] VITALS: BP 142/84; PULSE 63
== END 2021-09-15 09:23 | disposition home or self-care (01) ==
LOC: JASU-SURG 04:06
PROVIDERS: ATTEND Pain Medicine Pain Medicine
PROC: 3E0U33Z Introduction of Anti-inflammatory into Joints, Percutaneous Approach (ICD-10-PCS; 2021-09-15)
PROC: 3E0U3BZ Introduction of Anesthetic Agent into Joints, Percutaneous Approach (ICD-10-PCS; principal; 2021-09-15 08:00)
DX: M16.12 Unilateral primary osteoarthritis, left hip (principal)
CPT/HCPCS: 76000-TC-FY

== ENCOUNTER 2021-10-13 04:09 | Day surgery (SDC) | payer OTHER, BC ==
[2021-10-11 12:27] VITALS: BMI 30.2
[2021-10-13] MEDS ORDERED: IOHEXOL 180 MG/1 ML ML IJ ONE (10:30)
[2021-10-13] MEDS ORDERED: LIDOCAINE HCL 1% PRESERVATIVE FREE - 30ML VIAL IJ ONE (10:32)
[2021-10-13] MEDS ORDERED: BUPIVACAINE HCL/PF 0.75% 10 ML VIAL NR ONE (10:32)
[2021-10-13 12:06] VITALS: BP 135/78; PULSE 56; TEMP 96.9
== END 2021-10-13 11:07 | disposition home or self-care (01) ==
LOC: JASU-SURG 04:09
PROVIDERS: ATTEND Pain Medicine Pain Medicine
PROC: 3E0T33Z Introduction of Anti-inflammatory into Peripheral Nerves and Plexi, Percutaneous Approach (ICD-10-PCS; 2021-10-13)
PROC: 3E0T3BZ Introduction of Anesthetic Agent into Peripheral Nerves and Plexi, Percutaneous Approach (ICD-10-PCS; principal; 2021-10-13 10:30)
DX: M47.816 Spondylosis without myelopathy or radiculopathy, lumbar region (principal)
CPT/HCPCS: 76000-TC-FY

== ENCOUNTER 2021-12-19 04:22 | Day surgery (SDC) | payer OTHER, BC ==
[2021-12-18 10:01] VITALS: BMI 30.2
[2021-12-19] MEDS ORDERED: DEXAMETHASONE SOD PHOSPHATE 4 MG/1 ML VIAL ONE (07:16)
[2021-12-19] MEDS ORDERED: LIDOCAINE HCL/PF 1% SDV 5ML VIAL ONE (07:16)
[2021-12-19] MEDS ORDERED: LIDOCAINE 1% P/F 10 MG/ML VIAL INF ONE (10:08)
[2021-12-19 11:16] VITALS: TEMP 98.7
[2021-12-19 12:01] VITALS: BP 130/80; PULSE 60
== END 2021-12-19 11:40 | disposition home or self-care (01) ==
LOC: JASU-SURG 04:22
PROVIDERS: ATTEND Pain Medicine Pain Medicine
PROC: 01HY3MZ Insertion of Neurostimulator Lead into Peripheral Nerve, Percutaneous Approach (ICD-10-PCS; principal; 2021-12-19 09:30)
DX: G89.4 Chronic pain syndrome (principal); M54.50 Low back pain, unspecified
CPT/HCPCS: 64555; C1897; 76000-TC-FY

== ENCOUNTER 2022-01-19 04:10 | Day surgery (SDC) | payer OTHER, BC ==
[2022-01-19] MEDS ORDERED: LIDOCAINE HCL 1%, 10 MG/ML (20ML VIAL) ONE (07:28)
[2022-01-19] MEDS ORDERED: BUPIVACAINE HCL/PF 0.75% 10 ML VIAL ONE (07:29)
[2022-01-19] MEDS ORDERED: LIDOCAINE HCL/PF 1% SDV 5ML VIAL ONE (07:32)
[2022-01-19] MEDS ORDERED: LIDOCAINE HCL 1% PRESERVATIVE FREE - 30ML VIAL IJ ONE (08:17)
[2022-01-19 09:47] VITALS: TEMP 98.2
[2022-01-19 09:54] VITALS: BP 130/70; PULSE 54
== END 2022-01-19 09:40 | disposition home or self-care (01) ==
LOC: JASU-SURG 04:10
PROVIDERS: ATTEND Pain Medicine Pain Medicine
PROC: 01HY3MZ Insertion of Neurostimulator Lead into Peripheral Nerve, Percutaneous Approach (ICD-10-PCS; principal; 2022-01-19 08:00)
DX: G89.4 Chronic pain syndrome (principal); M47.816 Spondylosis without myelopathy or radiculopathy, lumbar region; I10 Essential (primary) hypertension
CPT/HCPCS: 64555; C1778; 76000-TC-FY